=== PATIENT | male | born 1985 | race African-American/Black ===

== ENCOUNTER 2016-07-11 16:50 | Emergency (ER) | payer SELFPAY ==
--- NOTE | 2016-07-11 17:28 | ER Document Report ---
ED Medical Screen (RME) - General Chief Complaint: High Blood Sugar Stated Complaint: BLOOD SUGAR PROBLEMS TRAVEL OUTSIDE OF THE [place] IN LAST 30 DAYS: No - HPI Notes: 07/11/16 17:28 Patient has been using a friend's metformin for his diabetes. Blood sugar has been reading high. Denies fevers chills nausea vomiting. Patient does have a history DKA the past - Related Data Allergies/Adverse Reactions: No Known Allergies Allergy (Verified 07/11/16 16:53) Past Medical History - Past Medical History Cardiac Medical History: Reports: Hx Hypertension Endocrine Medical History: Reports: Hx Diabetes Mellitus Type 2 Renal/ Medical History: Denies: Hx Peritoneal Dialysis - Immunizations Hx Diphtheria, Pertussis, Tetanus Vaccination: Yes Review of Systems - Review of Systems Constitutional: Other - Elevated blood sugar Physical Exam - Vital signs Vitals: Temp Pulse Resp BP Pulse Ox 98.1 F 89 18 154/97 H 100 07/11/16 16:54 07/11/16 16:54 07/11/16 16:54 07/11/16 16:54 07/11/16 16:54 - Notes Notes: Heart regular rate and rhythm no murmurs rubs or gallops Course - Vital Signs Vital signs: Temp Pulse Resp BP Pulse Ox 98.1 F 89 18 154/97 H 100 07/11/16 16:54 07/11/16 16:54 07/11/16 16:54 07/11/16 16:54 07/11/16 16:54 - Laboratory Laboratory results interpreted by me: 07/11/16 17:01 POC Glucose 354 H
[2016-07-11 17:49] LABS: ABSOLUTE EOSINOPHILS # (AUTO) 0.2 10^3/uL (0.0-0.6); ABSOLUTE LYMPHOCYTES (AUTO) 2.3 10^3/uL (0.5-4.7); ABSOLUTE MONOCYTES (AUTO) 0.5 10^3/uL (0.1-1.4); ABSOLUTE NEUT (AUTO) 2.6 10^3/uL (1.7-8.2); BASOPHILS % (AUTO) 0.9 % (0-2); EOSINOPHILS % (AUTO) 3.7 % (0-6); HEMATOCRIT 38.5 % (37.9-51.0); HGB HCT DIFFERENCE 0.5; MEAN CORPUSCULAR HEMOGLOBIN 25.7 pg (27.0-33.4); MEAN CORPUSCULAR HGB CONC 33.8 g/dL (32.0-36.0); MEAN CORPUSCULAR VOLUME 76 fl (80-97); MONOCYTES % (AUTO) 8.2 % (3-13); RED BLOOD COUNT 5.08 10^6/uL (4.35-5.55); SEGMENTED NEUTROPHILS % (AUTO) 46.2 % (42-78); VENOUS BLOOD HCO3 26.3 mmol/L (20-32); VENOUS BLOOD PCO2 44.8 mmHg (35-63); VENOUS BLOOD PH 7.39 (7.30-7.42); WHITE BLOOD COUNT 5.6 10^3/uL (4.0-10.5)
[2016-07-11 18:08] LABS: ANION GAP 15 (5-19); BLOOD UREA NITROGEN 13 mg/dL (7-20); CALCIUM 9.7 mg/dL (8.4-10.2); CARBON DIOXIDE 25 mmol/L (22-30); CHLORIDE 101 mmol/L (98-107); CREATININE RESULT 0.79 mg/dL (0.52-1.25); GLUCOSE 380 mg/dL (75-110); LIPASE 107.5 U/L (23-300); MAGNESIUM 1.8 mg/dL (1.6-2.3); POTASSIUM 4.5 mmol/L (3.6-5.0); SODIUM 140.7 mmol/L (137-145)
[2016-07-11 18:34] VITALS: BP 135/75
[2016-07-11] MEDS ORDERED: GLIPIZIDE 10 MG TABLET PO ONE (18:54)
[2016-07-11] MEDS ORDERED: METFORMIN HCL 500 MG TABLET PO ONE (18:54)
--- NOTE | 2016-07-11 19:02 | ER Document Report ---
ED General - General Chief Complaint: High Blood Sugar Stated Complaint: BLOOD SUGAR PROBLEMS TRAVEL OUTSIDE OF THE [place] IN LAST 30 DAYS: No - HPI Patient complains to provider of: elevated blood sugars Notes: Patient coming in for elevated blood sugars. Patient states he has ran out of his diabetic medication has been using a friend's metformin states he was on insulin past 2 as well. Patient denies any nausea vomiting fevers chills diarrhea abdominal pain. - Related Data Allergies/Adverse Reactions: No Known Allergies Allergy (Verified 07/11/16 16:53) Past Medical History - Social History Smoking Status: Never Smoker Frequency of alcohol use: Rare Drug Abuse: None Family History: Reviewed & Not Pertinent Patient has suicidal ideation: No Patient has homicidal ideation: No - Past Medical History Cardiac Medical History: Reports: Hx Hypertension Endocrine Medical History: Reports: Hx Diabetes Mellitus Type 2 Renal/ Medical History: Denies: Hx Peritoneal Dialysis Surgical Hx: Negative - Immunizations Hx Diphtheria, Pertussis, Tetanus Vaccination: Yes Review of Systems - Review of Systems Constitutional: Other - Hyperglycemia EENT: No symptoms reported Cardiovascular: No symptoms reported Respiratory: No symptoms reported Gastrointestinal: No symptoms reported Genitourinary: No symptoms reported Male Genitourinary: No symptoms reported Musculoskeletal: No symptoms reported Skin: No symptoms reported Hematologic/Lymphatic: No symptoms reported Neurological/Psychological: No symptoms reported Physical Exam - Vital signs Vitals: Temp Pulse Resp BP Pulse Ox 98.1 F 89 18 154/97 H 100 07/11/16 16:54 07/11/16 16:54 07/11/16 16:54 07/11/16 16:54 07/11/16 16:54 Interpretation: Normal - General General appearance: Appears well, Alert - HEENT Head: Normocephalic, Atraumatic Eyes: Normal Pupils: PERRL - Respiratory Respiratory status: No respiratory distress Chest status: Nontender Breath sounds: Normal Chest palpation: Normal - Cardiovascular Rhythm: Regular Heart sounds: Normal auscultation Murmur: No - Abdominal Inspection: Normal Distension: No distension Bowel sounds: Normal Tenderness: Nontender Organomegaly: No organomegaly - Back Back: Normal, Nontender - Extremities General upper extremity: Normal inspection, Nontender, Normal color, Normal ROM , Normal temperature General lower extremity: Normal inspection, Nontender, Normal color, Normal ROM , Normal temperature, Normal weight bearing. No: Aly's sign - Neurological Neuro grossly intact: Yes Cognition: Normal Orientation: AAOx4 Thong Coma Scale Eye Opening: Spontaneous Thong Coma Scale Verbal: Oriented Thong Coma Scale Motor: Obeys Commands Thong Coma Scale Total: 15 Speech: Normal Motor strength normal: LUE, RUE, LLE, RLE Sensory: Normal - Psychological Associated symptoms: Normal affect, Normal mood - Skin Skin Temperature: Warm Skin Moisture: Dry Skin Color: Normal Course - Re-evaluation Re-evalutation: 07/11/16 19:04 Patient's A1c is greater than 12 with blood sugar approximately 380 no signs of DKA or HHS. Patient will be given a dose of his medications here patient will be started on metformin and glipizide and 7030. Patient is to continue to take his blood sugars follow-up with the [facility] of that the consultation for social media campaign manager to see the patient - Vital Signs Vital signs: Temp Pulse Resp BP Pulse Ox 97.3 F 69 18 135/75 H 97 07/11/16 18:33 07/11/16 18:33 07/11/16 18:33 07/11/16 18:33 07/11/16 18:33 - Laboratory Result Diagrams: 07/11/16 17:35 07/11/16 17:35 Laboratory results interpreted by me: 07/11/16 07/11/16 07/11/16 17:01 17:35 17:35 Hgb 13.0 L MCV 76 L MCH 25.7 L Plt Count 133 L Glucose 380 H POC Glucose 354 H Hemoglobin A1c % 07/11/16 17:35 Hgb MCV MCH Plt Count Glucose POC Glucose Hemoglobin A1c % 12.2 H Discharge - Discharge Clinical Impression: Hyperglycemia Uncontrolled diabetes mellitus Qualifiers: Diabetes mellitus type: other specified (including [place]) Diabetes mellitus complication status: without complication Diabetes mellitus long-term insulin use: unspecified long-term insulin use status Qualified Code(s): E13.65 - Other specified diabetes mellitus with hyperglycemia Condition: Good Disposition: HOME, SELF-CARE Instructions: Diabetes ([facility]) Additional Instructions: Please follow-up with the clinic provided. We will have our social media campaign manager call you tomorrow to try to schedule you an appointment. Take medications as prescribed. Please keep a record of your blood sugars. Prescriptions: Glipizide [Glucotrol 10 mg Tablet] 10 mg PO BID #60 tablet Insulin NPH Hum/Reg Insulin Hm [Novolin 70-30 100 Unit/ml Vial] 10 unit SQ BID # 1 vial Metformin HCl [Glucophage] 1,000 mg PO BID #60 tablet Referrals: [facility] [Provider Group] - Follow up as needed
== END 2016-07-11 19:07 | disposition home or self-care (01) ==
LOC: ER 16:50
DX: E13.65 Other specified diabetes mellitus with hyperglycemia (principal)
CPT/HCPCS: 99284; 36415; 82962; 83690; 83735; 85025; 80048; 83036; 82803; J3490

== ENCOUNTER 2017-03-17 10:02 | Emergency (ER) | payer BC ==
[2017-03-17 10:08] VITALS: BP 138/79
--- NOTE | 2017-03-17 10:21 | ER Document Report ---
ED Blood Sugar Problem - General Chief Complaint: High Blood Sugar Stated Complaint: BLOOD SUGAR CONCERNS Time Seen by Provider: 03/17/17 10:09 Notes: The patient is a 31-year-old male, past medical history insulin-dependent diabetic, presents with several weeks of his blood sugars running in the upper 200s to low 300's. He is out of his metformin and glyburide. Patient says that he now has insurance, but he has not followed up with her primary care physician yet. He also has a new job where he makes more money, so he is able to afford the co-pays now. Patient denies nausea, vomiting, abdominal pain, fevers, dysuria, polyuria, polydipsia or chest pain. TRAVEL OUTSIDE OF THE [place] IN LAST 30 DAYS: No - Related Data Allergies/Adverse Reactions: No Known Allergies Allergy (Verified 03/17/17 10:04) Past Medical History - General Information source: Patient - Social History Smoking Status: Unknown if Ever Smoked Family History: Reviewed & Not Pertinent - Past Medical History Cardiac Medical History: Reports: Hx Hypertension Endocrine Medical History: Reports: Hx Diabetes Mellitus Type 2 Renal/ Medical History: Denies: Hx Peritoneal Dialysis - Immunizations Hx Diphtheria, Pertussis, Tetanus Vaccination: Yes Review of Systems - Review of Systems Notes: REVIEW OF SYSTEMS: CONSTITUTIONAL: -fevers, -chills EENT: -eye pain, -difficulty swallowing, -nasal congestion CARDIOVASCULAR:-chest pain, -syncope. RESPIRATORY: -cough, -SOB GASTROINTESTINAL: -abdominal pain, - nausea, -vomiting, -diarrhea GENITOURINARY: -dysuria, -hematuria MUSCULOSKELETAL: -back pain, -neck pain SKIN: -rash or skin lesions. HEMATOLOGIC: -easy bruising or bleeding. LYMPHATIC: -swollen, enlarged glands. NEUROLOGICAL: -altered mental status or loss of consciousness, -headache, - neurologic symptoms PSYCHIATRIC: -anxiety, -depression. ALL OTHER SYSTEMS REVIEWED AND NEGATIVE. Physical Exam - Vital signs Vitals: Temp Pulse Resp BP Pulse Ox 98.8 F 53 L 16 138/79 H 96 03/17/17 10:07 03/17/17 10:07 03/17/17 10:07 03/17/17 10:07 03/17/17 10:07 - Notes Notes: PHYSICAL EXAMINATION: GENERAL: Well-appearing, well-nourished and in no acute distress. HEAD: Atraumatic, normocephalic. EYES: Pupils equal round and reactive to light, extraocular movements intact, sclera anicteric, conjunctiva are normal. ENT: nares patent, oropharynx clear without exudates. Moist mucous membranes. NECK: Normal range of motion, supple without lymphadenopathy LUNGS: Breath sounds clear to auscultation bilaterally and equal. No wheezes rales or rhonchi. HEART: Regular rate and rhythm without murmurs ABDOMEN: Soft, nontender, normoactive bowel sounds. No guarding, no rebound. No masses appreciated. EXTREMITIES: Normal range of motion, no pitting or edema. No cyanosis. NEUROLOGICAL: Cranial nerves grossly intact. Normal speech, normal gait. Normal sensory and motor exams. PSYCH: Normal mood, normal affect. SKIN: Warm, Dry, normal turgor, no rashes or lesions noted. Course - Re-evaluation Re-evalutation: Patient with blood sugar of 330, but no ketones in his urine. He is drinking water in the ER without nausea or vomiting. He does not appear clinically to be in DKA. Instructed patient that now that he has insurance, he must follow- up with a primary care physician for further management of his diabetes. Since he has had multiple ER visits for this, told him that the emergency room is not an appropriate place for diabetes management. Will provide a refill of his Metformin and Glyburide and instructions to call the back of his insurance card to make a PMD appointment. Also provide him with hand written copies of test strips and insulin syringes. - Vital Signs Vital signs: Temp Pulse Resp BP Pulse Ox 98.8 F 53 L 16 138/79 H 96 03/17/17 10:07 03/17/17 10:07 03/17/17 10:07 03/17/17 10:07 03/17/17 10:07 - Laboratory Laboratory results interpreted by me: 03/17/17 03/17/17 10:12 10:24 POC Glucose 337 H Urine Glucose (UA) >=500 H Discharge - Discharge Clinical Impression: Diabetes type 2, uncontrolled Qualifiers: Diabetes mellitus complication status: without complication Diabetes mellitus senior care insulin use: unspecified senior care insulin use status Qualified Code(s ): E11.65 - Type 2 diabetes mellitus with hyperglycemia Condition: Stable Disposition: HOME, SELF-CARE Additional Instructions: HYPERGLYCEMIA (HIGH BLOOD SUGAR): You have an abnormally high blood sugar. Not all high blood sugar requires long-term treatment. High blood sugar can be due to medications, , or the stress of illness. (These cases are "borderline diabetes.") If the doctor feels your high blood sugar might resolve with time, you may not require treatment now. It's very important that you follow through, to see if the blood sugar returns to normal levels. Uncontrolled high blood sugar leads to early heart disease, strokes, nerve damage, eye damage, and kidney damage. Call the physician if there is faintness, excess sleepiness, or very rapid breathing. DIABETES: You have an abnormally high blood sugar, suspicious for diabetes. Not all high blood sugar requires long-term treatment. High blood sugar can be due to medications, , or the stress of illness. (These cases are "borderline diabetes.") If the doctor feels your high blood sugar might get better with time, you may not require treatment now. It's very important that you follow through. Uncontrolled high blood sugar leads to early heart disease, strokes, nerve damage, eye damage, and kidney damage. All diabetics should follow a diet designed to control the blood sugar. Overweight diabetics should exercise regularly and lose weight. If this is not sufficient to control the blood sugar, pills or insulin shots are necessary. Younger people who develop diabetes almost always require insulin daily. Home testing of blood sugars or urine sugar is required. Diabetic teaching is available to help you figure insulin doses and monitor the blood sugar. Call the physician if there is faintness, excess sleepiness, or very rapid breathing. If hypoglycemia (LOW blood sugar) develops, symptoms are shakiness, weakness, sweating, and confusion. In this case, you should eat or drink something with sugar at once. ORAL HYPOGLYCEMIC MEDICATION: Oral hypoglycemics are medicines that lower blood sugar in diabetics. They are not effective for younger diabetics who require insulin. Some brands are tolbutamide, Orinase, glipizide, Glucotrol, glyburide, DiaBeta, Glynase, and Micronase. Some medications can increase or decrease the effect of Diabinese. Examples are Clofibrate (Atromid-S), phenylbutazone (Butazolidin), aspirin, sulfonamides, Coumadin, allopurinol (Zyloprim), probenecid (Benemid), acetazolamide (Diamox), beta blockers, steroids, estrogens, Indocin, INH, Levothyroxine, nicotinic acid, Diflucan, Dilantin, and thiazide diuretics. Be sure your doctor knows all the medicines you take, and talk to your doctor before making any changes in your medicines. If you develop symptoms of shakiness, sweats, and lightheadedness, your blood sugar may have gone too low. Eat or drink a small amount of sweet food. If symptoms don't go away, call your doctor. FOLLOW-UP CARE: If you have been referred to a physician for follow-up care, call the physician s office for an appointment as you were instructed or within the next two days. If you experience worsening or a significant change in your symptoms, notify the physician immediately or return to the Emergency Department at any time for re-evaluation. Prescriptions: Glyburide 5 mg PO DAILY #30 tablet Insulin NPH Hum/Reg Insulin Hm [Novolin 70-30 100 Unit/ml Vial] 10 unit SQ BID 30 Days ml Metformin HCl [Glucophage 500 mg Tablet] 1,000 mg PO BID #60 tablet Forms: Elevated Blood Pressure Referrals: MARTA POLLARD MD [ACTIVE STAFF] - Follow up as needed
[2017-03-17 10:51] LABS: APPEARANCE,URINE CLEAR; BILIRUBIN,URINE NEGATIVE (NEGATIVE); GLUCOSE, URINE >=500 mg/dL (NEGATIVE); KETONES,URINE NEGATIVE (NEGATIVE); LEUKOCYTE ESTERASE,URINE NEGATIVE (NEGATIVE); NITRITE,URINE NEGATIVE (NEGATIVE); PROTEIN,URINE NEGATIVE (NEGATIVE); URINE SPECIFIC GRAVITY 1.023; UROBILINOGEN,URINE NEGATIVE mg/dL (<2.0)
== END 2017-03-17 11:20 | disposition home or self-care (01) ==
LOC: ER 10:02
DX: E11.65 Type 2 diabetes mellitus with hyperglycemia (principal); Z79.4 Long term (current) use of insulin
CPT/HCPCS: 81001; 82962; 99284

== ENCOUNTER 2018-02-13 18:27 | Emergency (ER) | payer SELFPAY ==
--- NOTE | 2018-02-13 21:06 | RADIOLOGY REPORT (SQ) ---
EXAM DESCRIPTION: XR FOREARM 2 VIEWS COMPLETED DATE/TME: 02/13/2018 20:33 CLINICAL HISTORY: 32 years, Male, laceration' Findings: Bony alignment is anatomic. No fracture or dislocation. No radiopaque foreign body. Soft tissues are unremarkable. IMPRESSION: No fracture.
[2018-02-13] MEDS ORDERED: CEPHALEXIN 500 MG CAPSULE PO ONE (22:44)
[2018-02-13] MEDS ORDERED: DIPH/PERTUSS(ACELL)/TETANUS VAC/PF 0.5 ML SYR (>=10YO) IM ONE (22:44)
[2018-02-13] MEDS ORDERED: LIDOCAINE 1% INJ-PF (10 MG/ML) 30 ML SDV INJ ONE (22:45)
--- NOTE | 2018-02-13 22:48 | ER Document Report ---
ED Extremity Problem, Upper - General Chief Complaint: Laceration Stated Complaint: ARM LACERATION Time Seen by Provider: 02/13/18 21:54 Mode of Arrival: Ambulatory Information source: Patient Notes: 32-year-old male presents to ED for complaint of laceration to his right forearm. He states he sliced it on a piece of metal at work today. He states he is a diabetic. He does not remember when he got his last tetanus shot. Patient is alert and oriented respirations regular and unlabored speaking in full sentences walking with a even steady gait. TRAVEL OUTSIDE OF THE [place] IN LAST 30 DAYS: No - HPI Patient complains to provider of: Right, Forearm Onset: This evening Recent injury: Yes Where: Work Quality of pain: Sharp Severity of pain: Mild Pain Level: 2 Context: Other - laceration Associated symptoms: None Exacerbated by: Movement Relieved by: Nothing Similar symptoms previously: No Recently seen / treated by doctor: No - Related Data Allergies/Adverse Reactions: No Known Allergies Allergy (Verified 03/17/17 10:04) Past Medical History - General Information source: Patient - Social History Smoking Status: Former Smoker Cigarette use (# per day): No Chew tobacco use (# tins/day): No Smoking Education Provided: No Frequency of alcohol use: None Drug Abuse: None Lives with: Family Family History: Reviewed & Not Pertinent Patient has suicidal ideation: No Patient has homicidal ideation: No - Past Medical History Cardiac Medical History: Reports: Hx Hypertension Pulmonary Medical History: Reports: None EENT Medical History: Reports: None Neurological Medical History: Reports: None Endocrine Medical History: Reports: Hx Diabetes Mellitus Type 2 Renal/ Medical History: Reports: None Malignancy Medical History: Reports None GI Medical History: Reports: None Musculoskeletal Medical History: Reports None Skin Medical History: Reports None Psychiatric Medical History: Reports: None Traumatic Medical History: Reports: None Infectious Medical History: Reports: None Surgical Hx: Negative Past Surgical History: Reports: None - Immunizations Immunizations up to date: Yes Hx Diphtheria, Pertussis, Tetanus Vaccination: Yes - 02/13/2018 Review of Systems - Review of Systems Constitutional: No symptoms reported EENT: No symptoms reported Cardiovascular: No symptoms reported Respiratory: No symptoms reported Gastrointestinal: No symptoms reported Genitourinary: No symptoms reported Male Genitourinary: No symptoms reported Musculoskeletal: No symptoms reported Skin: Other - Laceration to the right forearm Hematologic/Lymphatic: No symptoms reported Neurological/Psychological: No symptoms reported -: Yes All other systems reviewed and negative Physical Exam - Vital signs Vitals: Temp Pulse Resp BP Pulse Ox 98.1 F 78 14 144/83 H 99 02/13/18 18:33 02/13/18 18:33 02/13/18 18:33 02/13/18 18:33 02/13/18 18:33 Interpretation: Normal - General General appearance: Appears well, Alert - HEENT Head: Normocephalic, Atraumatic Eyes: Normal Pupils: PERRL - Respiratory Respiratory status: No respiratory distress Chest status: Nontender Breath sounds: Normal Chest palpation: Normal - Cardiovascular Rhythm: Regular Heart sounds: Normal auscultation Murmur: No - Abdominal Inspection: Normal Distension: No distension Bowel sounds: Normal Tenderness: Nontender Organomegaly: No organomegaly - Back Back: Normal, Nontender - Extremities General upper extremity: Normal color, Normal ROM, Normal temperature General lower extremity: Normal inspection, Nontender, Normal color, Normal ROM , Normal temperature, Normal weight bearing. No: Aly's sign Forearm: Tender - right forearm 2cm, Laceration - Neurological Neuro grossly intact: Yes Cognition: Normal Orientation: AAOx4 Thong Coma Scale Eye Opening: Spontaneous [place] Coma Scale Verbal: Oriented [place] Coma Scale Motor: Obeys Commands [place] Coma Scale Total: 15 Speech: Normal Motor strength normal: LUE, RUE, LLE, RLE Sensory: Normal - Psychological Associated symptoms: Normal affect, Normal mood - Skin Skin Temperature: Warm Skin Moisture: Dry Skin Color: Normal Skin irregularity: Laceration - 2 cm irregular Location of irregularity: Extremities - Right forearm Irregularity with: Tenderness Course - Vital Signs Vital signs: Temp Pulse Resp BP Pulse Ox 98.1 F 78 16 139/89 H 98 02/13/18 23:35 02/13/18 23:35 02/13/18 23:35 02/13/18 23:35 02/13/18 23:35 Procedures - Laceration/Wound Repair Right Arm Time completed: 23:30 Wound length (cm): 2 Wound's Depth, Shape: Irregular Laceration pre-procedure: Sterile PPE donned, Sterile drapes applied, Shur- Clens applied Anesthetic type: 1% Lidocaine Volume Anesthetic (mLs): 5 Wound explored: Contaminated Irrigated w/ Saline (mLs): 300 Wound Repaired With: Sutures Suture Size/Type: 4:0, Ethilon Number of Sutures: 3 Layer Closure?: No Post-procedure wound care: Sterile dressing applied Post-procedure NV exam normal: Yes Complications: No Discharge - Discharge Clinical Impression: Laceration of right forearm Qualifiers: Encounter type: initial encounter Qualified Code(s): S51.811A - Laceration without foreign body of right forearm, initial encounter Condition: Stable Disposition: HOME, SELF-CARE Instructions: Family Physicians / Practices Additional Instructions: LACERATION CARE: Your laceration has been sutured to keep the skin edges aligned during healing. The time of suture removal depends on the nature and location of your cut. Please follow the care instructions the doctor has outlined for you and return for further care, according to the schedule you've been given. Keep the wound and dressing clean. Unless you were told otherwise, you may shower daily, blotting the wound dry with a clean, unused towel. At other times, If the dressing gets wet or blood soaked, remove it and blot the wound dry, then reapply a new dressing. Unless you were instructed otherwise, dressings should be changed at least daily. If any signs of infection occur (swelling, redness, drainage, increasing tenderness, red streaks, tender lumps in the armpit or groin above the laceration, or fever), see the doctor immediately. SOAP CLEANSING: Gently wash the wound daily using a mild soap (like Ivory, Phisoderm, Neutrogena). Use warm water, rubbing gently until all debris, ooze, and crusting have been washed from the wound. Allow to dry briefly (about 10 minutes) after cleaning. Repeat this cleansing at least three times a day for the first two days and then once or twice a day. ANTIBIOTIC OINTMENT PROTECTION: Your wounds are such that dressing them is not practical or optional. After cleansing, you should apply a thin coating of antibiotic ointment ( Bacitracin, not Neosporin) to the wounds at least three times daily. This lessens infection risk, and may decrease the amount of scarring. Use a q-tip or dull butter knife, not your finger, to apply this ointment. Any debris or ooze which builds up in the ointment should be gently rubbed off with a sterile gauze pad. Harder crusting may need to be gently scrubbed off with a clean wash cloth with soap and warm water, perhaps applying a warm, wet wash cloth to the wound for ten minutes first. Development of redness, severe itching, or blistering may mean allergy to the ointment. See the doctor. TETANUS IMMUNIZATION GIVEN: You have been given an immunization against tetanus. Please record this in your records. In general, a booster is needed only once every 10 years. The tetanus shot protects against tetanus or "lockjaw," which is a complication of certain wound infections (the tetanus shot cannot protect against the actual infection). The immunization site may become warm and red due to local reaction. If this occurs, apply warm compresses and take aspirin or ibuprofen to reduce inflammation and discomfort. Return for evaluation if the reaction becomes severe. Cephalexin The antibiotic you've been prescribed is a member of the cephalosporin class. This type of antibiotic covers a wide variety of infections, including those of the skin, lungs, and urinary tract. It's useful for staph infections. This antibiotic is slightly similar to the penicillin family. In rare cases , a person who is allergic to penicillin will also be allergic to this medication. If you have had a severe allergic reaction to penicillin, and have not taken this antibiotic since that time, notify your doctor. Antibiotics which cover many germs ("broad spectrum" antibiotics) are more likely to cause diarrhea or "yeast" infections. Women prone to vaginal yeast problems may suffer an attack after taking this antibiotic. In infants, oral thrush (white spots "stuck" on the cheek) or yeast diaper rash may result. See your doctor if these problems occur. Call at once if you develop itching, hives , shortness of breath, or lightheadedness. FOLLOW-UP CARE: Please return in __3___ days for an infection check and dressing change. Your sutures should be removed in __8___ days. To facilitate a timely removal of your sutures, you may return to the Emergency Department at [facility]. You do not need to call for an appointment, but the best time to come in for suture removal is early in the morning. If you have been referred to another physician for follow-up care, call that physicians office for an appointment as you were instructed. If you experience a significant change in your laceration, or if you are concerned there may be an infection (swelling, redness, drainage, increasing tenderness, red streaks, tender lumps in the armpit or groin above the laceration, or fever) , return to the Emergency Department immediately re-evaluation. Prescriptions: Cephalexin Monohydrate [Keflex 500 mg Capsule] 500 mg PO Q6H 5 Days capsule Forms: Elevated Blood Pressure, Return to Work
[2018-02-13 23:45] VITALS: BP 139/89
== END 2018-02-13 23:45 | disposition home or self-care (01) ==
LOC: ER 18:27
PROC: 0HQDXZZ Repair Right Lower Arm Skin, External Approach (ICD-10-PCS; principal; 2018-02-13)
DX: S51.811A Laceration without foreign body of right forearm, initial encounter (principal); W45.8XXA Other foreign body or object entering through skin, initial encounter; Z87.891 Personal history of nicotine dependence; E11.9 Type 2 diabetes mellitus without complications; I10 Essential (primary) hypertension
CPT/HCPCS: 99283; 90471; 73090; 90715; 12001; J3490